=== PATIENT | female | born 1990 | race Caucasian/White ===

== ENCOUNTER 2019-10-26 13:08 | Outpatient (CLI) | payer BC, MEDICAID ==
[2019-10-26 14:15] LABS: APPEARANCE,URINE CLEAR; BILIRUBIN,URINE NEGATIVE (NEGATIVE); COLOR,URINE STRAW; GLUCOSE, URINE NEGATIVE (NEGATIVE); KETONES,URINE TRACE mg/dL (NEGATIVE); LEUKOCYTE ESTERASE,URINE TRACE (NEGATIVE); NITRITE,URINE NEGATIVE (NEGATIVE); PROTEIN,URINE NEGATIVE (NEGATIVE); URINE SPECIFIC GRAVITY 1.004; UROBILINOGEN,URINE NEGATIVE mg/dL (<2.0)
[2019-10-26 14:27] LABS: URINE AMPHETAMINES SCREEN NEGATIVE; URINE BARBITURATES SCREEN NEGATIVE; URINE BENZODIAZEPINES SCREEN NEGATIVE; URINE COCAINE SCREEN NEGATIVE; URINE MARIJUANA (THC) SCREEN NEGATIVE; URINE METHADONE SCREEN NEGATIVE; URINE PHENCYCLIDINE SCREEN NEGATIVE
[2019-10-26] MEDS ORDERED: HYDROXYZINE PAMOATE 50 MG CAPSULE PO ONE (16:09)
[2019-10-26] MEDS ORDERED: HYDROXYZINE PAMOATE 50 MG CAPSULE ONE (16:10)
--- NOTE | 2019-10-26 16:25 | Non Stress Test Report ---
Non Stress Test Datetime Report Generated by CPN: 10/26/2019 16:24 DEMOGRAPHIC EGA NST: 38.0 INDICATION Indication for Study (NST) Other: contractions VITAL SIGNS Temperature - NST: 98.0 Pulse - NST: 58 RESP - NST: 18 NBPSYS NST: 127 NBPDIA NST: 77 MONITORING Monitor Explained: Monitor Explained; Test Explained; Patient Verbalized Understanding Time on Monitor: 10/26/2019 13:26 Time off Monitor: 10/26/2019 16:04 NST Duration: 158 NST INTERVENTIONS NST Interventions: PO Hydration Physician Notified NST: Dr ryan BABY A: [id number] BABY A Movement : Present Contraction Frequency : 5-8 FHR Baseline : 130 Accelerations : 15X15 Decelerations : None Variability : Moderate 6-25bpm NST Review: Meets Criteria for Reactive NST NST Review and Verified By : Sunni Chew RN NSFroilan Results: Reactive NST REPORT Report Trigger: Send Report
== END 2019-10-26 16:17 | disposition home or self-care (01) ==
LOC: LC 13:08
PROVIDERS: ATTEND Obstetrics & Gynecology Gynecology
PROC: 4A1HXCZ Monitoring of Products of Conception, Cardiac Rate, External Approach (ICD-10-PCS; principal; 2019-10-26)
DX: O47.1 False labor at or after 37 completed weeks of gestation (principal); Z3A.38 38 weeks gestation of pregnancy
CPT/HCPCS: 59025; 80307; 81005

== ENCOUNTER 2019-10-27 02:09 | Outpatient (CLI) | payer BC, MEDICAID ==
[2019-10-27 02:57] LABS: APPEARANCE,URINE CLEAR; BILIRUBIN,URINE NEGATIVE (NEGATIVE); COLOR,URINE STRAW; GLUCOSE, URINE NEGATIVE (NEGATIVE); KETONES,URINE NEGATIVE (NEGATIVE); LEUKOCYTE ESTERASE,URINE LARGE (NEGATIVE); NITRITE,URINE NEGATIVE (NEGATIVE); PROTEIN,URINE NEGATIVE (NEGATIVE); URINE SPECIFIC GRAVITY 1.002; UROBILINOGEN,URINE NEGATIVE mg/dL (<2.0)
[2019-10-27 03:14] LABS: URINE AMPHETAMINES SCREEN NEGATIVE; URINE BARBITURATES SCREEN NEGATIVE; URINE BENZODIAZEPINES SCREEN NEGATIVE; URINE MARIJUANA (THC) SCREEN NEGATIVE; URINE METHADONE SCREEN NEGATIVE; URINE PHENCYCLIDINE SCREEN NEGATIVE
[2019-10-27 03:23] LABS: URINE COCAINE SCREEN NEGATIVE
[2019-10-27] MEDS ORDERED: HYDROXYZINE PAMOATE 50 MG CAPSULE ONE (04:19)
[2019-10-27] MEDS ORDERED: HYDROXYZINE PAMOATE 50 MG CAPSULE PO ONE (04:30)
--- NOTE | 2019-10-27 05:04 | Non Stress Test Report ---
Non Stress Test Datetime Report Generated by CPN: 10/27/2019 05:04 DEMOGRAPHIC EGA NST: 38.1 INDICATION Indication for Study (NST) Other: greater than 32 weeks URINE RESULTS Urine Protein, NST: Negative Urine Ketones - NST: Negative Urine Glucose - NST: Negative Urine Blood - NST: Positive MONITORING Monitor Explained: Monitor Explained; Test Explained; Patient Verbalized Understanding Time on Monitor: 10/27/2019 02:32 Time off Monitor: 10/27/2019 04:30 NST Duration: 118 NST INTERVENTIONS NST Interventions: PO Hydration; Reposition Patient Physician Notified NST: Dr. Hallman BABY A: [id number] BABY A Movement : Present Contraction Frequency : Irregular FHR Baseline : 135 Accelerations : 15X15 Decelerations : None Variability : Moderate 6-25bpm NST Review: Meets Criteria for Reactive NST NST Review and Verified By : Maximino Dwyer RN NST Results: Reactive NST REPORT Report Trigger: Send Report
== END 2019-10-27 04:41 | disposition home or self-care (01) ==
LOC: LC 02:09
PROVIDERS: ATTEND Obstetrics & Gynecology Gynecology
PROC: 4A1HXCZ Monitoring of Products of Conception, Cardiac Rate, External Approach (ICD-10-PCS; principal; 2019-10-27)
DX: O47.1 False labor at or after 37 completed weeks of gestation (principal); Z3A.38 38 weeks gestation of pregnancy
CPT/HCPCS: 59025; 80307; 81005

== ENCOUNTER 2019-10-27 13:36 | Inpatient (IN) | payer BC, MEDICAID ==
[2019-10-27 14:21] LABS: APPEARANCE,URINE CLEAR; BILIRUBIN,URINE NEGATIVE (NEGATIVE); COLOR,URINE YELLOW; GLUCOSE, URINE NEGATIVE (NEGATIVE); KETONES,URINE TRACE mg/dL (NEGATIVE); LEUKOCYTE ESTERASE,URINE SMALL (NEGATIVE); NITRITE,URINE NEGATIVE (NEGATIVE); PROTEIN,URINE NEGATIVE (NEGATIVE); URINE SPECIFIC GRAVITY 1.003; UROBILINOGEN,URINE NEGATIVE mg/dL (<2.0)
[2019-10-27] MEDS ORDERED: RINGERS SOLUTION,LACTATED 1,000 ML IV PRN (14:24)
[2019-10-27] MEDS ORDERED: RINGERS SOLUTION,LACTATED 1,000 ML IV ONE (14:24)
[2019-10-27] MEDS ORDERED: PENICILLIN G POTASSIUM 5,000,000 UNIT in DEXTROSE 5%-WATER 100 ML IV ONE (14:24)
[2019-10-27] MEDS ORDERED: OXYTOCIN 10 UNIT/ML VIAL ONE (14:26)
[2019-10-27] MEDS ORDERED: PENICILLIN G-K 5 MILLION UNIT VIAL ONE (14:27)
[2019-10-27] MEDS ORDERED: MISOPROSTOL 0.2 MG TABLET ONE (14:27)
[2019-10-27] MEDS ORDERED: OXYTOCIN/NORMAL SALINE 20 UNIT/1,000 ML RTUINJ ONE (14:27)
[2019-10-27] MEDS ORDERED: LIDOCAINE 1% INJ-PF (10 MG/ML) 30 ML SDV ONE (14:27)
[2019-10-27 14:44] LABS: URINE AMPHETAMINES SCREEN NEGATIVE; URINE BARBITURATES SCREEN NEGATIVE; URINE BENZODIAZEPINES SCREEN NEGATIVE; URINE COCAINE SCREEN NEGATIVE; URINE MARIJUANA (THC) SCREEN NEGATIVE; URINE METHADONE SCREEN NEGATIVE; URINE PHENCYCLIDINE SCREEN NEGATIVE
[2019-10-27 15:19] LABS: ABSOLUTE LYMPHOCYTES (AUTO) 1.9 10^3/uL (0.5-4.7); ABSOLUTE MONOCYTES (AUTO) 0.6 10^3/uL (0.1-1.4); ABSOLUTE NEUT (AUTO) 10.7 10^3/uL (1.7-8.2); BASOPHILS % (AUTO) 0.1 % (0-2); EOSINOPHILS % (AUTO) 0.3 % (0-6); HEMATOCRIT 36.4 % (36.0-47.0); HEMOGLOBIN 12.4 g/dL (12.0-15.5); LYMPHOCYTES % (AUTO) 14.3 % (13-45); MEAN CORPUSCULAR HEMOGLOBIN 24.9 pg (27.0-33.4); MEAN CORPUSCULAR VOLUME 73 fl (80-97); MONOCYTES % (AUTO) 4.5 % (3-13); PLATELET COUNT 321 10^3/uL (150-450); RED BLOOD COUNT 4.97 10^6/uL (3.72-5.28); RED CELL DISTRIBUTION WIDTH 14.6 % (11.5-14.0); SEGMENTED NEUTROPHILS % (AUTO) 80.8 % (42-78); TOTAL CELLS COUNTED % (AUTO) 100 %; WHITE BLOOD COUNT 13.3 10^3/uL (4.0-10.5)
[2019-10-27] MEDS ORDERED: FENTANYL CITRATE INJ/PF 100 MCG/2 ML AMPUL ONE (15:28)
[2019-10-27] MEDS ORDERED: EPHEDRINE SULFATE INJ 50 MG/1 ML AMPULE ONE (15:28)
[2019-10-27] MEDS ORDERED: PHENYLEPHRINE HCL INJ/PF 10 MG/1 ML SDV ONE (15:28)
[2019-10-27] MEDS ORDERED: FENTANYL/BUPIVACAINE/NS/PF 300 MCG/150 ML RTUINJ EPI ONE (15:29)
[2019-10-27] MEDS ORDERED: BUPIVACAINE HCL 0.25 % INJ/PF (2.5 MG/1 ML) 30 ML VIAL ONE (15:29)
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
[2019-10-27] MEDS: PENICILLIN G POTASSIUM 2,500,000 UNIT in DEXTROSE 5%-WATER 50 ML IV SCH ×2 (18:00→22:44)
[2019-10-27] MEDS ORDERED: DIBUCAINE 1% OINTMENT 28 GM TP PRN (19:18)
[2019-10-27] MEDS ORDERED: MAGNESIUM HYDROXIDE SUSP 30 ML UDCUP PO PRN (19:18)
[2019-10-27] MEDS ORDERED: PROMETHAZINE HCL 25 MG SUPP.RECT PR PRN (19:18)
[2019-10-27] MEDS ORDERED: OXYTOCIN/NORMAL SALINE 20 UNIT/1,000 ML RTUINJ IV PRN (19:18)
[2019-10-27] MEDS ORDERED: DIPHENHYDRAMINE HCL 25 MG CAPSULE PO PRN (19:18)
[2019-10-27] MEDS ORDERED: PSEUDOEPHEDRINE HCL 30 MG TABLET PO PRN (19:18)
[2019-10-27] MEDS ORDERED: ZOLPIDEM TARTRATE 5 MG TABLET PO PRN (19:18)
[2019-10-27] MEDS ORDERED: DIPH/PERTUSS(ACELL)/TETANUS VAC/PF 0.5 ML SYR (>=10YO) IM PRN (19:18)
[2019-10-27] MEDS ORDERED: BENZOCAINE/MENTHOL AEROSOL SPRAY 56 ML TOP PRN (19:18)
[2019-10-27] MEDS ORDERED: GLYCERIN/WITCH HAZEL LEAF 1 EACH MED..WIPE TP PRN (19:18)
[2019-10-27] MEDS ORDERED: MEASLES,MUMPS&RUBELLA VACC/PF 0.5 ML VIAL SUBCUT PRN (19:18)
[2019-10-27] MEDS ORDERED: NA PHOS,M-B/NA PHOS,DI-BA (ADULT) 133 ML ENEMA PR PRN (19:18)
[2019-10-27] MEDS ORDERED: PROMETHAZINE HCL INJ 25 MG/1 ML VIAL IV PRN (19:18)
[2019-10-27] MEDS ORDERED: ACETAMINOPHEN 650 MG SUPP.RECT PR PRN (19:18)
[2019-10-27] MEDS ORDERED: PROMETHAZINE HCL 25 MG TABLET PO PRN (19:18)
[2019-10-27] MEDS: ACETAMINOPHEN WITH CODEINE #3 TABLET PO PRN (21:47)
[2019-10-27] MEDS: IBUPROFEN 800 MG TABLET PO SCH (21:49)
[2019-10-27] MEDS: FAMOTIDINE 20 MG TABLET PO SCH (21:50)
[2019-10-28] MEDS: IBUPROFEN 800 MG TABLET PO SCH ×3 (05:59→22:38)
[2019-10-28] MEDS: ACETAMINOPHEN WITH CODEINE #3 TABLET PO PRN (06:16)
[2019-10-28 07:54] LABS: HEMATOCRIT 35.9 % (36.0-47.0); HEMOGLOBIN 11.9 g/dL (12.0-15.5); MEAN CORPUSCULAR HEMOGLOBIN 24.7 pg (27.0-33.4); MEAN CORPUSCULAR HGB CONC 33.1 g/dL (32.0-36.0); MEAN CORPUSCULAR VOLUME 75 fl (80-97); PLATELET COUNT 282 10^3/uL (150-450); RED BLOOD COUNT 4.81 10^6/uL (3.72-5.28); RED CELL DISTRIBUTION WIDTH 14.4 % (11.5-14.0); WHITE BLOOD COUNT 15.3 10^3/uL (4.0-10.5)
--- NOTE | 2019-10-28 09:18 | PDOC PROGRESS REPORT ---
Subjective-OB Progress Note for:: 10/28/19 Subjective: Pt doing well, no concerns. She reports light bleeding, reg diet and voiding without difficulty. Physical Exam (OB) Vital Signs: Temp Pulse Resp BP Pulse Ox 98.0 F 74 16 121/81 99 10/28/19 07:24 10/28/19 07:24 10/28/19 07:24 10/28/19 07:24 10/28/19 07:24 Intake & Output 10/27/19 10/28/19 10/29/19 06:59 06:59 06:59 Intake Total 1260 Balance 1260 Weight 88.4 kg - Abdomen Description: Soft Hernia Present: No Fundal Description: Firm Fundal Height: u/u - u/2 Objective-Diagnostic Laboratory: 10/28/19 07:19 10/27/19 10/27/19 10/27/19 13:49 14:50 14:50 WBC 13.3 H RBC 4.97 Hgb 12.4 Hct 36.4 MCV 73 L MCH 24.9 L MCHC 34.0 RDW 14.6 H Plt Count 321 Seg Neutrophils % 80.8 H Urine Color YELLOW Urine Appearance CLEAR Urine pH 6.0 Ur Specific [place] 1.003 Urine Protein NEGATIVE Urine Glucose (UA) NEGATIVE Urine Ketones TRACE H Urine Blood LARGE H Urine Nitrite NEGATIVE Ur Leukocyte Esterase SMALL H Blood Type B POSITIVE Antibody Screen NEGATIVE 10/28/19 07:19 WBC 15.3 H RBC 4.81 Hgb 11.9 L Hct 35.9 L MCV 75 L MCH 24.7 L MCHC 33.1 RDW 14.4 H Plt Count 282 Seg Neutrophils % Urine Color Urine Appearance Urine pH Ur Specific [place] Urine Protein Urine Glucose (UA) Urine Ketones Urine Blood Urine Nitrite Ur Leukocyte Esterase Blood Type Antibody Screen Assessment and Plan(PN) - Assessment and Plan (1) Vaginal delivery Is this a current diagnosis for this admission?: Yes (2) Obstetric vaginal laceration Qualifiers: Perineal laceration presence: without perineal laceration Qualified Code(s): O71.4 - Obstetric high vaginal laceration alone Is this a current diagnosis for this admission?: Yes (3) Normal course Is this a current diagnosis for this admission?: Yes (4) Active labor at term Is this a current diagnosis for this admission?: Yes - Time Spent with Patient Time with patient: Less than 15 minutes Medications reviewed and adjusted accordingly: Yes - Disposition Anticipated Discharge: Home Within: within 24 hours
[2019-10-28] MEDS: DOCUSATE SODIUM 100 MG CAPSULE PO SCH ×2 (09:23→17:12)
[2019-10-28] MEDS: PRENATAL VITAMIN W DHA CAPSULE PO SCH (09:23)
[2019-10-28] MEDS: FERROUS SULFATE 325 MG TABLET PO SCH ×2 (09:23→17:12)
[2019-10-28] MEDS: SENNOSIDES/DOCUSATE 8.6-50 MG 1 EACH TABLET PO SCH (09:23)
[2019-10-28] MEDS: FAMOTIDINE 20 MG TABLET PO SCH ×2 (10:11→22:38)
[2019-10-29 07:26] VITALS: BP 112/67
[2019-10-29] MEDS: FERROUS SULFATE 325 MG TABLET PO SCH (09:10)
[2019-10-29] MEDS: DOCUSATE SODIUM 100 MG CAPSULE PO SCH (09:10)
[2019-10-29] MEDS: SENNOSIDES/DOCUSATE 8.6-50 MG 1 EACH TABLET PO SCH (09:10)
[2019-10-29] MEDS: PRENATAL VITAMIN W DHA CAPSULE PO SCH (09:10)
--- NOTE | 2019-10-29 09:20 | PDOC DISCHARGE SUMMARY ---
Impression - Admit/DC Date/PCP Admission Date/Primary Care Provider: 10/27/19 14:27 ADARSH NAVA MD Discharge Date: 10/29/19 - PP Day #2, doing well, no complaints, , B+, Rubella Immune - Additional Information Resuscitation Status: Full Code Discharge Diet: As Tolerated Discharge Activity: Activity As Tolerated, No Lifting Over 10 Pounds, Pelvic Rest Referrals: ADARSH NAVA MD [Primary Care Provider] - Home Medications: Mesalamine [Lialda] 1.2 gm PO DAILY 10/26/19 Vits96/Iron Fum/Folic [ Tablet] 1 each PO DAILY 10/26/19 HPI Reason(s) for Admission: Onset of Labor Procedures: Ultrasound Intrapartum Procedure(s): Spontaneous Vaginal Delivery Complication(s): Laceration-Vaginal Results Laboratory Results: WBC 15.3 10^3/uL (4.0-10.5) H 10/28/19 07:19 RBC 4.81 10^6/uL (3.72-5.28) 10/28/19 07:19 Hgb 11.9 g/dL (12.0-15.5) L 10/28/19 07:19 Hct 35.9 % (36.0-47.0) L 10/28/19 07:19 MCV 75 fl (80-97) L 10/28/19 07:19 MCH 24.7 pg (27.0-33.4) L 10/28/19 07:19 MCHC 33.1 g/dL (32.0-36.0) 10/28/19 07:19 RDW 14.4 % (11.5-14.0) H 10/28/19 07:19 Plt Count 282 10^3/uL (150-450) 10/28/19 07:19 Lymph % (Auto) 14.3 % (13-45) 10/27/19 14:50 [place] % (Auto) 4.5 % (3-13) 10/27/19 14:50 Eos % (Auto) 0.3 % (0-6) 10/27/19 14:50 Baso % (Auto) 0.1 % (0-2) 10/27/19 14:50 Absolute Neuts (auto) 10.7 10^3/uL (1.7-8.2) H 10/27/19 14:50 Absolute Lymphs (auto) 1.9 10^3/uL (0.5-4.7) 10/27/19 14:50 Absolute Monos (auto) 0.6 10^3/uL (0.1-1.4) 10/27/19 14:50 Absolute Eos (auto) 0.0 10^3/uL (0.0-0.6) 10/27/19 14:50 Absolute Basos (auto) 0.0 10^3/uL (0.0-0.2) 10/27/19 14:50 Seg Neutrophils % 80.8 % (42-78) H 10/27/19 14:50 Urine Color YELLOW 10/27/19 13:49 Urine Appearance CLEAR 10/27/19 13:49 Urine pH 6.0 (5.0-9.0) 10/27/19 13:49 Ur Specific [place] 1.003 10/27/19 13:49 Urine Protein NEGATIVE mg/dL (NEGATIVE) 10/27/19 13:49 Urine Glucose (UA) NEGATIVE mg/dL (NEGATIVE) 10/27/19 13:49 Urine Ketones TRACE mg/dL (NEGATIVE) H 10/27/19 13:49 Urine Blood LARGE (NEGATIVE) H 10/27/19 13:49 Urine Nitrite NEGATIVE (NEGATIVE) 10/27/19 13:49 Urine Bilirubin NEGATIVE (NEGATIVE) 10/27/19 13:49 Urine Urobilinogen NEGATIVE mg/dL (<2.0) 10/27/19 13:49 Ur Leukocyte Esterase SMALL (NEGATIVE) H 10/27/19 13:49 Urine Ascorbic Acid NEGATIVE (NEGATIVE) 10/27/19 13:49 Urine Opiates Screen NEGATIVE 10/27/19 13:49 Urine Methadone Screen NEGATIVE 10/27/19 13:49 Ur Barbiturates Screen NEGATIVE 10/27/19 13:49 Ur Phencyclidine Scrn NEGATIVE 10/27/19 13:49 Ur Amphetamines Screen NEGATIVE 10/27/19 13:49 U Benzodiazepines Scrn NEGATIVE 10/27/19 13:49 Urine Cocaine Screen NEGATIVE 10/27/19 13:49 U Marijuana (THC) Screen NEGATIVE 10/27/19 13:49 RPR NONREACTIVE (NONREACTIVE) 10/27/19 14:50 Blood Type B POSITIVE 10/27/19 14:50 Antibody Screen NEGATIVE 10/27/19 14:50 Plan Plan of Treatment: d/c home, f/up with [facility] in 4 wks for PP check
--- NOTE | 2019-10-31 10:11 | Delivery Summary ---
Del Sum A-C Datetime Report Generated by CPN: 10/31/2019 10:11 DELIVERY PERSONNEL DELIVERY PERSONNEL: [id number] Delivery Doctor:: Baldo Hallman MD Labor and Delivery Nurse:: Tea Aviles RNhealthcare manager Nurse:: Darby Rodríguez RN Nursery Nurse:: Kaila Todd RN Nursery Nurse:: Jory Interiano RN Concrete Panel Installer/DINING ROOM HOSTESS: Sera Iyer CST Concrete Panel Installer/DINING ROOM HOSTESS: Winnie Escalante, MATERIAL CARRIER Additional Personnel: : Elida Gilda, MATERIAL CARRIER MATERNAL INFORMATION Delivery Anesthesia: Epidural Medications After Delivery: Pitocin Bolus-Please Comment Meds After Delivery Comment: pitocin 20 units in 1000mL nss Delivery QBL: 150 Maternal Complications: None LABOR SUMMARY EDC: 11/09/2019 00:00 No. Babies in Womb: 1 Attempted: No Labor Anesthesia: Epidural LABOR INFORMATION Reason for Induction: Not Applicable Onset of Labor: 10/27/2019 14:17 Complete Dilatation: 10/27/2019 18:26 Oxytocin: Augmentation Group B Beta Strep: positive Group B Beta Strep: Positive Antibiotics # of Doses: 2 Antibiotics Time of Last Dose: 1800 Name of Antibiotic Given: PCN Steroids Given: None Reason Steroids Not Administered: Not Applicable MEMBRANES Membranes Rupture Method: Spontaneous Rupture of Membranes: 10/27/2019 14:17 Length of Rupture (hr): 4.78 Amniotic Fluid Color: Bloody Amniotic Fluid Amount: Small Amniotic Fluid Odor: None STAGES OF LABOR Stage 1 hr: 4 Stage 1 min: 9 Stage 2 hr: 0 Stage 2 min: 38 Stage 3 hr: 0 Stage 3 min: 5 Total Time in Labor hr: 4 Total Time in Labor min: 52 VAGINAL DELIVERY Episiotomy: None Laceration #1: Vaginal Laceration Extension #1: N/A Laceration Repair: Yes Laceration Repair Note: repair 2-0 vicryl Sponge Count Correct: Yes Sharps Count Correct: Yes CSECTION DELIVERY Primary Indication: N/A Secondary Indication: N/A CSection Incidence: N/A Labor: N/A Elective: N/A CSection Incision: N/A BABY A INFORMATION Delivery Date/Time: 10/27/2019 19:04 Method of Delivery: Vaginal Method of Delivery: Vaginal Nurse Controlled Delivery: No Born in Route : No : N/A Forceps: N/A Vacuum Extraction: Successful Shoulder Dystocia : No ASSISTED DELIVERY BABY A Indication for Assisted Delivery: distress Catheter Prior to Procedure: No Position Vacuum/Forcep Apply: Left Occipital Anterior Vacuum Number of Pulls: 3 Vacuum Number of PopOffs: 0 Reduce Pressure btwn Ctx: Yes Vacuum Dressmaker Helper: [email or web address] PRESENTATION/POSITION BABY A Presentation: Cephalic Cephalic Presentation: Vertex Vertex Position: Left Occipital Anterior Breech Presentation: N/A PLACENTA INFORMATION BABY A Placenta Delivery Time : 10/27/2019 19:09 Placenta Method of Delivery: Spontaneous Placenta Status: Delivered SCORES BABY A Heart Rate 1 min: >100 bpm Resp Effort 1 min: Good Cry Reflex Irritability 1 min: Cough or Sneeze or Pulls Away Muscle Tone 1 min: Active Motion Color 1 min: Body [place], Extremities Blue Resuscitation Effort 1 min: Tactile Stimulation SCORE 1 MIN: 9 Heart Rate 5 min: >100 bpm Resp Effort 5 min: Good Cry Reflex Irritability 5 min: Cough or Sneeze or Pulls Away Muscle Tone 5 min: Active Motion Color 5 min: Body [place], Extremities Blue Resuscitation Effort 5 min: N/A SCORE 5 MIN: 9 INFORMATION BABY A Gestational Age at Delivery: 38.1 Gestational Status: Early Term- 37- 38.6 Weeks Outcome : Liveborn Condition : Stable Infant Sex: Female Infant Sex: Female IDENTIFICATION BABY A Verification Date/Time: 10/27/2019 19:29 ID Band Number: [id number] Mother's Name Verified: Yes Infant RN Verifying : rn zack and rn claudette WEIGHT/LENGTH BABY A Birthweight (gm): 2772 Infant Weight (lb): 6 Infant Weight (oz): 2 Length (in): 18.50 Length (cm): 46.99 CORD INFORMATION BABY A No. Cord Vessels: 3 Nuchal Cord : N/A Cord Blood Taken: Yes-For Storage (Mom's Blood type +) Cord Blood Taken: Yes-For Storage (Mom's Blood type +) Infant Suction: None ASSESSMENT BABY A Complications: None Physical Findings at Delivery: Within Normal Limits Respirations: Appears Normal Skin to Skin: Yes Skin to Skin Time (min): 60 Price Economist/ALS Called : No Infant Care By: Bibi Todd RN Transferred To: Remains with Mother BABY B INFORMATION : N/A SIGNATURES Signature: with User ID: [email or web address]
== END 2019-10-29 13:29 | disposition home or self-care (01) | DRG 806 ==
LOC: LC 13:36 → LR 14:27 → 2S 21:15
PROVIDERS: ADMIT Obstetrics & Gynecology Gynecology; ATTEND Obstetrics & Gynecology Gynecology
PROC: 10D07Z6 Extraction of Products of Conception, Vacuum, Via Natural or Artificial Opening (ICD-10-PCS; principal; 2019-10-27)
PROC: 0UQGXZZ Repair Vagina, External Approach (ICD-10-PCS; 2019-10-27)
DX: O24.425 Gestational diabetes mellitus in childbirth, controlled by oral hypoglycemic drugs (principal); O98.32 Other infections with a predominantly sexual mode of transmission complicating childbirth; Z37.0 Single live birth; O71.4 Obstetric high vaginal laceration alone; O76 Abnormality in fetal heart rate and rhythm complicating labor and delivery; O99.824 Streptococcus B carrier state complicating childbirth; A60.00 Herpesviral infection of urogenital system, unspecified; Z91.410 Personal history of adult physical and sexual abuse; Z79.899 Other long term (current) drug therapy; Z3A.38 38 weeks gestation of pregnancy; Z87.891 Personal history of nicotine dependence
CPT/HCPCS: 36415; 80307; 81005; 85025; 85027; 86592; 86850; 86900; 86901; J2370; J2540; J2590; J3010; J3490; J7060